=== PATIENT | female | born 1955 | race Two or more races ===

== ENCOUNTER 2017-07-18 10:15 | Inpatient (IN) | payer OTHER ==
[2017-07-18] MEDS ORDERED: FORTAMET500 MG (11:27)
[2017-07-28] MEDS ORDERED: Intestinex CAP PO (10:04)
[2017-07-28] MEDS ORDERED: Mylicon 125MG PO (10:04)
[2017-07-28] MEDS ORDERED: OXYC1TAB9 PO (10:04)
[2017-07-28] MEDS ORDERED: FLAGYL500MG PO (10:04)
[2017-07-28] MEDS ORDERED: CIPRO500 MG PO (10:04)
== END 2017-07-28 13:41 | disposition home or self-care (01) | DRG 331 ==
LOC: SURG 07-23 10:15 → O/R 07-23 10:33 → SURG 07-23 10:33
PROVIDERS: Surgery
PROC: 07TC4ZZ Resection of Pelvis Lymphatic, Percutaneous Endoscopic Approach (ICD-10-PCS; 2017-07-23)
PROC: 0DJD8ZZ Inspection of Lower Intestinal Tract, Via Natural or Artificial Opening Endoscopic (ICD-10-PCS; 2017-07-23)
PROC: 0DTN4ZZ Resection of Sigmoid Colon, Percutaneous Endoscopic Approach (ICD-10-PCS; principal; 2017-07-23 13:30)
DX: C19 Malignant neoplasm of rectosigmoid junction (principal); R59.0 Localized enlarged lymph nodes

== ENCOUNTER 2017-08-20 06:45 | Day surgery (SDC) | payer OTHER ==
[~2017-08-20 06:45] MED LIST: CIPRO500 MG PO; FLAGYL500MG PO; FORTAMET500 MG; Intestinex CAP PO; Mylicon 125MG PO; OXYC1TAB9 PO
[2017-08-20] MEDS ORDERED: OXYC1TAB9 PO (09:59)
== END 2017-08-20 14:25 | disposition home or self-care (01) ==
LOC: CIR.AMB 06:45
DX: C19 Malignant neoplasm of rectosigmoid junction (principal)
CPT/HCPCS: 36561; C1751

== ENCOUNTER 2020-10-21 07:44 | Day surgery (SDC) | payer OTHER ==
[~2020-10-21 07:44] MED LIST changes: +JANUMET 50-1,01 EACH PO
[2020-10-21] MEDS ORDERED: DICLOFENAC SODI75 MG PO (10:25)
== END 2020-10-21 12:00 | disposition home or self-care (01) ==
LOC: CIR.AMB 07:44
PROVIDERS: ATTEND Surgery
DX: C19 Malignant neoplasm of rectosigmoid junction (principal); Z20.822 Contact with and (suspected) exposure to COVID-19